=== PATIENT | female | born 1950 | race Caucasian/White ===

== ENCOUNTER 2023-11-19 21:42 | Emergency (ER) | payer MEDICARE ==
[2023-11-19] MEDS ORDERED: ceFAZolin 1,000 MG VIAL (IM USE) IM ONE (22:37)
[2023-11-19] MEDS ORDERED: LIDOCAINE 1% INJ 10MG/ML (20 ML MDV) ONE (22:37)
[2023-11-20] MEDS ORDERED: MORPHINE SULFATE 4 MG/ML SYRINGE ONE (00:42)
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
== END 2023-11-20 01:45 | disposition home or self-care (01) ==
LOC: EC 21:42
CPT/HCPCS: 96372; 99283